=== PATIENT | female | born 1975 | race Caucasian/White ===

== ENCOUNTER 2016-06-02 22:43 | Emergency (ER) | payer BC ==
[2016-06-02] MEDS ORDERED: SODIUM CHLORIDE 0.9% 1,000 ML ONE (23:37)
[2016-06-02] MEDS ORDERED: MORPHINE 4 MG/ML SYR ONE (23:37)
[2016-06-02] MEDS ORDERED: ONDANSETRON 4 MG VIAL ONE (23:37)
[2016-06-03] MEDS ORDERED: KETOROLAC 30 MG/ML VIAL ONE (00:42)
== END 2016-06-03 01:47 | disposition home or self-care (01) ==
LOC: ER 22:43
DX: N83.01 Follicular cyst of right ovary (principal)
CPT/HCPCS: 36415; 74176; 76830; 80053; 81003; 83690; 84703; 85025; 87491; 87591; 87800; 96361; 96374; 96375